=== PATIENT | female | born 1975 | race Caucasian/White ===

== ENCOUNTER 2016-11-30 16:49 | Emergency (ER) | payer OTHER ==
[~2016-11-30] VITALS: Ht 162.6 cm; Wt 81.6 kg
[~2016-11-30 16:49] MED LIST: DIAZ5TAB PO; HYDR-971 PO; IBUP400T18 PO; OXYC-323 PO
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
[2016-11-30] MEDS ORDERED: HYDROcodone/APAP 5/325MG 1 TAB TABLET PO ONE (17:15)
[2016-11-30] MEDS ORDERED: NAPR500T PO (18:22)
[2016-11-30] MEDS ORDERED: ONDA8TAB12 PO (18:22)
[2016-11-30 18:37] VITALS: BP 129/70
--- NOTE | 2016-12-01 08:29 | RAD ---
Bilateral hands, 6 views, 11/30/2016: History: Hand injury There are mild degenerative changes at scattered interphalangeal joints. There is mild deformity of the terminal tuft of the distal phalanx of the left ring finger probably due to old trauma. A definite acute fracture line is not seen. IMPRESSION: No acute bony abnormality is detected.
--- NOTE | 2016-12-01 08:37 | RAD ---
Left foot, 3 views, 11/30/2016: History: Foot injury No fracture or dislocation is identified. There is a small inferior calcaneal spur. There is moderate subcutaneous edema. IMPRESSION: No acute bony abnormality is detected.
== END 2016-11-30 18:30 | disposition home or self-care (01) ==
LOC: ER 16:49
DX: S60.222A Contusion of left hand, initial encounter (principal); S60.221A Contusion of right hand, initial encounter; S93.505A Unspecified sprain of left lesser toe(s), initial encounter; J45.909 Unspecified asthma, uncomplicated; F17.200 Nicotine dependence, unspecified, uncomplicated; F12.10 Cannabis abuse, uncomplicated; Z91.040 Latex allergy status; W20.8XXA Other cause of strike by thrown, projected or falling object, initial encounter; Y93.89 Activity, other specified; Y99.8 Other external cause status; Y92.89 Other specified places as the place of occurrence of the external cause
CPT/HCPCS: 73130; 73630; 99284

== ENCOUNTER 2017-02-13 13:44 | Inpatient (IN) | payer OTHER ==
[~2017-02-13] VITALS: Ht 162.6 cm; Wt 84.4 kg
[~2017-02-13 13:44] MED LIST changes: +NAPR500T PO; +ONDA8TAB12 PO
--- NOTE | 2017-02-13 14:34 | PHYS DOC ---
Past History Past Medical History: Asthma Past Surgical History: Cholecystectomy, , Other Smoking: Greater than 1 pack/day Alcohol Use: None Drug Use: Marijuana Adult General Chief Complaint Chief Complaint: INSECT BITE HPI HPI Patient is a 41-year-old female who presents ambulatory to the ED with the complaint of a painful lesion on the back of the right thigh. More than 10 days ago, she believes it started as some kind of a bite. She was seen in the ED at [facility] and prescribed what she believes was Bactrim. She took it twice a day until gone as directed. The lesion did not get better, it got worse. She also has numerous small itchy lesions on her arms, back, buttocks and legs. For the past couple of days, she's had fever and chills, occasional vomiting, has felt tired, just wants to sleep all day, doesn't feel well. The right posterior thigh lesion has become more painful. Patient states she had MRSA several years ago, she started with cellulitis of her right foot and then it got into her bloodstream. Review of Systems Review of Systems Constitutional: As in history of present illness Eyes: Denies change in visual acuity, redness, or eye pain [] HENT: Denies nasal congestion or sore throat [] Respiratory: Denies cough or shortness of breath [] Cardiovascular: Denies chest pain GI: "A little" vomiting : Denies dysuria or hematuria [] Musculoskeletal: Denies back pain or joint pain [] Integument: As in history of present illness Neurologic: Denies headache, focal weakness or sensory changes [] Current Medications Current Medications Current Medications Medications (Trade) Dose Ordered Sig/Adore Start Time Stop Time Status Last Admin Dose Admin Acetaminophen (Tylenol) 1,000 mg 1X ONCE 02/13/17 14:35 02/13/17 14:36 Sodium Chloride 1,000 ml @ 1,000 mls/hr 1X ONCE 02/13/17 14:30 02/13/17 15:29 UNV Allergies Allergies Allergies Coded Allergies Type Severity Reaction Last Updated Verified latex Allergy Intermediate Rash 11/30/16 Yes Physical Exam Physical Exam Constitutional: Well developed, well nourished, alert, mentating normally, afebrile but having shaking chills HENT: Normocephalic, atraumatic, bilateral external ears normal, nose normal. [ ] Eyes: conjunctiva normal, no discharge. [] Neck: Normal range of motion, no stridor. [] Cardiovascular:Heart rate regular rhythm, no murmur [] Lungs & Thorax: Bilateral breath sounds clear to auscultation [] Skin: Warm, dry. There are scattered lesions that are 2-3 mm in size, pink, raised, none or vesicular, some are excoriated, present in a scattered fashion on both arms, her back, and both legs, perhaps 5-10 per extremity. There is a area of these lesions over the right low back just above the buttock that is more coalescent. On the right posterior thigh, there is a area of swelling and redness that is about 4 inches in diameter. It does not feel indurated, questionable he feels fluctuant. No drainage. Overlying skin is dry and excoriated. Most of the posterior thigh is red in an area of apparent cellulitis around the central area of more redness and swelling. Distal neurovascular intact, no swelling of the knee or lower leg on the right. Extremities: No tenderness, no cyanosis, no clubbing, ROM intact, no edema. [] Neurologic: Alert and oriented X 3, normal motor function, normal sensory function, no focal deficits noted. [] EKG EKG [] Radiology/Procedures Radiology/Procedures Procedure: Aspiration of questionable abscess by me The area of questionable abscess on the right posterior thigh was cleaned with Betadine. A small area was anesthetized with 1% buffered lidocaine plain. An 18- gauge needle was used to aspirate the area. There is no purulent return whatsoever. A small amount of blood was obtained but nothing else. The patient tolerated the procedure well. [] Course & Med Decision Making Course & Med Decision Making Pertinent Labs and Imaging studies reviewed. (See chart for details) 41-year-old female presents with an area of apparent cellulitis on the posterior right thigh, there may be an abscess in the middle. Also systemic signs of infection including chills and general malaise. She has completed a course of antibiotics that she believes is Bactrim. Discussed with the patient that she has worsened despite outpatient antibiotics, need to check some labs and potentially admit her for IV antibiotics, she is agreeable to that plan. Patient remained stable in the ED but continued to have shaking chills. I did anesthetize and aspirate the area of questionable abscess and I did not get any pus back. I believe the area on the posterior right thigh represents cellulitis. It is not itchy but it is painful. She does not have a fever here but is having shaking chills. She has failed outpatient antibiotics, finished a course of Bactrim and states her redness is worse rather than better. I believe the patient should be admitted for IV antibiotics and IV fluids. Discussed the case with Dr. Lyons who will admit the patient. I wrote bridge orders. [] Dragon Disclaimer Dragon Disclaimer This chart was dictated in whole or in part using Voice Recognition software in a busy, high-work load, and often noisy Emergency Department environment. It may contain unintended and wholly unrecognized errors or omissions. Departure Departure: Impression: Primary Impression: Cellulitis of right leg Disposition: ADMITTED INPATIENT Admitting Physician: Stacie Lyons Condition: STABLE Referrals: CELE KHAN NP (PCP) CAMPOS MEIER MD Feb 13, 2017 14:34
[2017-02-13] MEDS ORDERED: IV NORMAL SALINE 1,000ML 1,000 ML IV ONE (14:35)
[2017-02-13] MEDS ORDERED: ACETAMINOPHEN 500 MG TABLET PO ONE (14:35)
[2017-02-13 14:46] LABS: BASO # 0.1 x10^3/uL (0.0-0.2); BASO % 1 % (0-3); EOS # 0.9 x10^3/uL (0.0-0.7); EOS % 9 % (0-3); HEMATOCRIT 30.7 % (36.0-47.0); HEMOGLOBIN 9.5 g/dL (12.0-15.5); LYMPH # 2.5 x10^3/uL (1.0-4.8); LYMPH % 27 % (24-48); MEAN CORPUSCULAR HEMOGLOBIN 19 pg (25-35); MEAN CORPUSCULAR HGB CONC 31 g/dL (31-37); MEAN CORPUSCULAR VOLUME 60 fL (79-100); MONO # 0.7 x10^3/uL (0.0-1.1); MONO % 7 % (0-9); NEUT # 5.1 x10^3uL (1.8-7.7); NEUT % 56 % (31-73); PLATELET COUNT 574 x10^3/uL (140-400); RED BLOOD COUNT 5.09 x10^6/uL (3.50-5.40); RED CELL DISTRIBUTION WIDTH 21.2 % (11.5-14.5); WHITE BLOOD COUNT 9.2 x10^3/uL (4.0-11.0)
[2017-02-13 15:02] LABS: ALBUMIN 3.9 g/dL (3.4-5.0); ALBUMIN/GLOBULIN RATIO 0.9 (1.0-1.7); CALCIUM 9.1 mg/dL (8.5-10.1); CREATININE 0.9 mg/dL (0.6-1.0); GFR 68.3; POTASSIUM 3.7 mmol/L (3.5-5.1); TOTAL BILIRUBIN 0.3 mg/dL (0.2-1.0); TOTAL PROTEIN 8.1 g/dL (6.4-8.2)
[2017-02-13] MEDS ORDERED: LIDOCAINE WITH 8.4% SOD BICARB 3 ML DISP.SYRIN. IJ ONE (15:45)
[2017-02-13] MEDS ORDERED: IV NORMAL SALINE 500ML 0 ML ONE (16:30)
[2017-02-13] MEDS ORDERED: VANCOMYCIN 2 GM in IV NORMAL SALINE 500ML 500 ML IV ONE (16:30)
[2017-02-13] MEDS ORDERED: VANCOMYCIN 1 GM VIAL. ONE (16:30)
[2017-02-13] MEDS: IV NORMAL SALINE 1,000ML 1,000 ML IV SCH (16:35)
[2017-02-13] MEDS: fentaNYL PF 100 MCG/2 ML VIAL IV PRN ×3 (16:46→23:47)
[2017-02-13] MEDS: VANCOMYCIN PER PHARMACY MC PRN ×2 (16:47→17:14)
[2017-02-13 17:26] VITALS: BP 116/73
[2017-02-13 18:59] LABS: BILIRUBIN,URINE NEG (NEG); CLARITY,URINE CLEAR; COLOR,URINE STRAW; GLUCOSE,URINE NEG (NEG)
[2017-02-13 19:01] LABS: BACTERIA,URINE 0 /HPF (0-FEW); NITRITE,URINE NEG (NEG); RBC,URINE 0 /HPF (0-2); SQUAMOUS EPITHELIAL CELL,UR MOD /LPF; UROBILINOGEN,URINE 0.2 mg/dL (0.2 mg/dL); WBC,URINE 0 /HPF (0-4); YEAST,URINE PRESENT /HPF
[2017-02-13] MEDS: hydrOXYzine PAMOATE 25 MG CAPSULE PO PRN (20:04)
[2017-02-13 20:30] VITALS: BP 111/56
[2017-02-13] MEDS ORDERED: NICOTINE POLACRILEX GUM 2 MG GUM. BC PRN (21:00)
[2017-02-13 21:40] LABS: ANISOCYTOSIS MOD; HYPOCHROMIA MOD; MICROCYTOSIS MOD; OVALOCYTES FEW; PLT ESTIMATE INCREASED (ADEQUATE); POLYCHROMASIA PRESENT; TARGET CELLS FEW; TEAR DROP CELLS FEW
[2017-02-13 23:15] VITALS: BP 102/57
[2017-02-13] MEDS: NICOTINE 21MG PATCH. TD SCH (23:25)
[2017-02-14] MEDS: IV NORMAL SALINE 1,000ML 1,000 ML IV SCH ×2 (02:35→11:34)
--- NOTE | 2017-02-14 02:38 | ACF ---
Admission Criteria Forms CELLULITIS Clinical Indications for Admission to Inpatient Care (Place 'X' for any and all applicable criteria): Admission is indicated for ANY ONE of the following(1)(2)(3)(4)(5): [ ]I. Limb-threatening infection [ ]II. High-risk comorbid condition as indicated by ANY ONE of the following: [ ]a) Uncontrolled diabetes (eg, HbA1c greater than 10% (0.1)) [ ]b) Cirrhosis [ ]c) Neutropenia [ ]d) Asplenia [ ]e) Immunosuppression [ ]f) Symptomatic heart failure [ ]III. Failure of outpatient therapy as indicated by ALL of the following: [ ]a) Progression or no improvement after adequate trial (minimum of 48 hours, with longer period for stable lower extremity infection) [ ]b) Adequate antibiotic regimen as indicated by use of ANY ONE of the following: [ ]i) First-generation cephalosporin (e.g., cephalexin) [ ]ii) Antistaphylococcal penicillin (e.g., dicloxacillin) [ ]iii) Penicillin-allergic patient regimen (clindamycin, extended-spectrum fluoroquinolone, or doxycycline) [ ]iv) Resistant organism (eg, methicillin-resistant Staphylococcus aureus) regimen (6) [ ]c) Outpatient intravenous therapy regimen is not appropriate due to ANY ONE of the following. (7)(8)(9)(10): [ ]i) It was tried and was not successful (eg, progression of infection). [ ]ii) It is not available or cannot be arranged in a clinically appropriate time frame (e.g., the next day). [ ]iii) Clinical presentation (eg, acuity of infection, rapidity of progression, confirmed or suspected bacteremia) is judged to require ALL of the following: [ ]1) Immediate initiation of intravenous therapy ( eg, cannot wait for next day) [ ]2) Intensity of patient monitoring and observation (eg, vital sign measurement, checks for infection progression) that cannot be provided at other than inpatient level of care [ ]IV. Mental status changes [ ]V. Bacteremia [ ]. Hemodynamic instability [ ]VII. Suspected necrotizing soft tissue infection (e.g., gas in tissue)(11)( 12) [ ]VIII. Orbital infection (13)(14) [ ]IX. Associated surgical procedure (e.g., abscess drainage, debridement) not amenable to outpatient, emergency department, or observation care [ ]X. Cutaneous gangrene [ ]XI. High fever (temperature greater than 39.5 degrees C (103.1 degrees F) (oral)) not responsive to outpatient, emergency department, or observation care therapy [X ]XIII. Inpatient admission required rather than observation care (Also use Cellulitis: Observation Care as appropriate) because of ANY ONE of the following : [ ]a) Periorbital or perineal infection that is severe or worsening [ ]b) Severe pain requiring acute inpatient management [ ]c) IV fluid to replace significant ongoing (e.g., for over 24 hours) losses (greater than 3L/m2 per day) [ ]d) Compartment syndrome monitoring (17) [ ]e) Strict or protective (eg, laminar flow) isolation [ ]f) Urgent debridement or skin grafting [ ]g) Bone or joint debridement [ ]h) Immediate inpatient surgery [X ]i) Other condition, treatment or monitoring requiring inpatient admission Extended stay beyond goal length of stay may be needed for (1)(18): [ ]a) Necrotizing soft tissue infection or fasciitis [ ]b) Gram-negative infection [ ]c) Methicillin-resistant Staphylococcal aureus (MRSA) infection [ ]d) Peripheral venous insufficiency with cellulitis [ ]e) Extensive edema [ ]f) Sepsis or continued Hemodynamic instability [ ]g) Continued high fever or mental status change [ ]h) Bacteremia [ ]i) Active serious comorbid conditions ( eg, heart failure, renal insufficiency) The original [employer] content created by [employer] has been revised. The portions of the content which have been revised are identified through the use of italic text or in bold, and [facility] has neither reviewed nor approved the modified material. All other unmodified content is copyright [facility] Please see references footnoted in the original [facility] edition 2016 Admission Criteria Met?: Yes LINNEA OCONNELL Feb 14, 2017 02:38
[2017-02-14] MEDS: hydrOXYzine PAMOATE 25 MG CAPSULE PO PRN (05:30)
[2017-02-14] MEDS: VANCOMYCIN 1.25 GM in IV NORMAL SALINE 250ML 250 ML IV SCH ×2 (05:31→17:17)
[2017-02-14 05:47] VITALS: BP 107/57
[2017-02-14] MEDS: NICOTINE 21MG PATCH. TD SCH (08:15)
[2017-02-14] MEDS: KETOROLAC 30 MG/ML VIAL. IV PRN ×2 (08:27→19:23)
[2017-02-14] MEDS: HYDROCORTISONE 2.5% TOPICAL OINTMENT 30GM TUBE. TP SCH ×2 (10:24→16:00)
[2017-02-14] MEDS: CETIRIZINE HCL 10 MG TABLET PO SCH (10:24)
[2017-02-14] MEDS: MEROPENEM 1 GM in IV NORMAL SALINE 100ML 100 ML IV SCH ×3 (10:24→21:47)
[2017-02-14] MEDS: fentaNYL PF 100 MCG/2 ML VIAL IV PRN ×3 (10:35→17:48)
[2017-02-14 11:18] VITALS: BP 117/66
[2017-02-14] MEDS ORDERED: methylPREDNISolone SOD SUCC PF 40 MG/ML VIAL. IV ONE (11:55)
[2017-02-14] MEDS: PRENATAL MULTIVITAMIN TABLET. PO SCH (12:20)
--- NOTE | 2017-02-14 12:36 | HP ---
ADMIT DATE: 02/13/2017 REASON FOR ADMISSION: Skin condition. HISTORY OF PRESENT ILLNESS: This is a 41-year-old female who presented to the Emergency Room yesterday complaining of continued painful lesion on the back of the right thigh. She failed outpatient treatment with Bactrim. This has been ongoing for at least 10 days. She feels like she got bit with something, but is not sure what bit her. She has some other areas also that popped up and has complained of symptomatic fever and chills and occasional vomiting. She also feels quite sleepy according to the Emergency Room record. PAST MEDICAL HISTORY: 1. She states she was told she had hepatitis C and then did not have hepatitis C and she has not had any treatment for that. 2. She had MRSA on her foot few years ago. 3. She has a history of iron deficiency, but cannot take iron. MEDICATIONS: None. ALLERGIES: Latex. FAMILY HISTORY: Positive for diabetes, hypertension. Mother of ovarian cancer from talc she states. HABITS: Smokes 2 packs per day. Denies IV drug use or current drug use. SOCIAL HISTORY: He has 4 children, currently is not working. REVIEW OF SYSTEMS: Positive for chills, fever, some weight gain, itching and scratching of the lesions. Positive subjective complaint of fever and chills. The patient does complain of foul smelling discharge and some unprotected sex, but several months ago. OBJECTIVE: VITAL SIGNS: T-max is 98.4, blood pressure , respirations 20, pulse 73, pulse ox 100% on room air. Height 64 inches, weight 186 pounds. GENERAL: A 41-year-old who is just waking up from sleeping. She did get some fentanyl. HEENT: Hearing is normal. Her eyes are clear. Her throat was clear. She has a tongue piercing. NECK: Supple. LUNGS: Clear. CARDIOVASCULAR: Regular rhythm and rate. ABDOMEN: Soft, mildly tender diffusely. Bowel sounds are positive. EXTREMITIES: Without edema. SKIN: Posterior right thigh has a very large round area of erythema with scaling patches that is tender, cannot appreciate an abscess. She has another smaller patch above the right knee much smaller. She has also other areas on the legs, arms of areas of scratching without the bright red rash. LABORATORY DATA: White count is normal, hemoglobin is 9.5, hematocrit 30.7. Chemistry profile is negative. Lactic acid negative. Urinalysis contaminated specimen, but negative leukocyte esterase, negative nitrites. ASSESSMENT: 1. Cellulitis of the posterior thigh with dermatitis. 2. Other itchy lesions on the skin. 3. History of MRSA. 4. Tobacco use disorder. Offered her nicotine patch. Encouraged to quit. 5. Severe microcytic anemia. We will check iron studies and start her on a vitamin. PLAN: Broad spectrum antibiotics, hydrocortisone cream, Zyrtec for itching. Reevaluate in the morning. STEPHANIE RAMON DO DR: WILDER/aria JOB#: [id number] / [id number]
[2017-02-14] MEDS ORDERED: FLUCONAZOLE 100 MG TABLET. PO ONE (14:10)
[2017-02-14 14:56] VITALS: BP 128/78
--- NOTE | 2017-02-14 16:20 | HP ---
ADMIT DATE: 02/13/2017 ADDENDUM HISTORY OF PRESENT ILLNESS: The patient complained of vaginal discharge and a wet mount was done. She was found to have both vaginal yeast and bacterial vaginosis. She will be treated accordingly. 1. Bacterial vaginosis. 2. Vaginal yeast, in addition to her other problems. STEPHANIE RAMON DO DR: WILDER/aria JOB#: [id number] / [id number]
[2017-02-14 19:28] VITALS: BP 113/67
[2017-02-14] MEDS ORDERED: IRON SUCROSE COMPLEX 200 MG in IV NORMAL SALINE 100ML 100 ML IV ONE (21:00)
[2017-02-14 23:30] VITALS: BP 120/69
[2017-02-15] MEDS: fentaNYL PF 100 MCG/2 ML VIAL IV PRN (02:20)
[2017-02-15 04:40] LABS: BASO # 0.1 x10^3/uL (0.0-0.2); BASO % 1 % (0-3); EOS % 0 % (0-3); HEMATOCRIT 26.9 % (36.0-47.0); HEMOGLOBIN 8.2 g/dL (12.0-15.5); LYMPH # 1.2 x10^3/uL (1.0-4.8); LYMPH % 11 % (24-48); MEAN CORPUSCULAR HEMOGLOBIN 19 pg (25-35); MEAN CORPUSCULAR HGB CONC 31 g/dL (31-37); MEAN CORPUSCULAR VOLUME 61 fL (79-100); MONO # 0.7 x10^3/uL (0.0-1.1); MONO % 7 % (0-9); NEUT # 8.4 x10^3uL (1.8-7.7); NEUT % 81 % (31-73); PLATELET COUNT 502 x10^3/uL (140-400); RED BLOOD COUNT 4.45 x10^6/uL (3.50-5.40); RED CELL DISTRIBUTION WIDTH 21.4 % (11.5-14.5); WHITE BLOOD COUNT 10.4 x10^3/uL (4.0-11.0)
[2017-02-15 05:03] LABS: ALBUMIN/GLOBULIN RATIO 0.8 (1.0-1.7); CALCIUM 8.4 mg/dL (8.5-10.1); CREATININE 0.8 mg/dL (0.6-1.0); GFR 78.3; MAGNESIUM 1.8 mg/dL (1.8-2.4); POTASSIUM 4.2 mmol/L (3.5-5.1); TOTAL BILIRUBIN 0.2 mg/dL (0.2-1.0); TOTAL PROTEIN 6.6 g/dL (6.4-8.2)
[2017-02-15] MEDS: VANCOMYCIN 1.25 GM in IV NORMAL SALINE 250ML 250 ML IV SCH (05:09)
[2017-02-15 05:21] VITALS: BP 100/47
[2017-02-15] MEDS: KETOROLAC 30 MG/ML VIAL. IV PRN (05:23)
[2017-02-15] MEDS: MEROPENEM 1 GM in IV NORMAL SALINE 100ML 100 ML IV SCH ×2 (06:31→14:11)
[2017-02-15] MEDS ORDERED: PNEUMOC CONJ VACC 23-VALENT 0.5 ML VIAL. VAX IM ONE (08:00)
[2017-02-15] MEDS: VANCOMYCIN PER PHARMACY MC PRN (08:27)
[2017-02-15] MEDS: HYDROCORTISONE 2.5% TOPICAL OINTMENT 30GM TUBE. TP SCH ×2 (09:00→16:00)
[2017-02-15] MEDS: PRENATAL MULTIVITAMIN TABLET. PO SCH (09:19)
[2017-02-15] MEDS: NICOTINE 21MG PATCH. TD SCH (09:20)
[2017-02-15] MEDS: CETIRIZINE HCL 10 MG TABLET PO SCH (09:20)
[2017-02-15 11:28] VITALS: BP 115/73
[2017-02-15 15:00] VITALS: BP 117/88
[2017-02-15] MEDS ORDERED: fentaNYL PF 100 MCG/2 ML VIAL IV PRN (15:15)
[2017-02-15] MEDS ORDERED: VANCOMYCIN 1.5 GM in IV NORMAL SALINE 500ML 500 ML IV SCH (17:00)
--- NOTE | 2017-02-16 09:43 | DS ---
DATE OF DISCHARGE: 02/15/2017 HISTORY OF PRESENT ILLNESS: The patient is a 41-year-old female patient who was admitted with a painful lesion in the back of the right thigh. She went to work with her cousin and developed skin lesion in the back of her right thigh, so [facility], she was treated there. She was diagnosed with cellulitis and treated with Bactrim twice a day for 10 days. She did complete the outpatient antibiotic treatment without much improvement and she came to the Emergency Room at [facility] with continued erythema and pain in that area and also multiple other lesions which was thought to be herpetic keratosis and symptomatic fever, chills, occasional vomiting and she was started on IV vancomycin and then meropenem. She also complained of vaginal discharge and was diagnosed with bacterial vaginosis and vaginal yeast, in addition to her other problems. As she is not really making any improvement, continued to have severe pain and redness she states it is in the back of the right thigh. There are multiple skin lesions ____ cellulitis and the skin rash at the back of the thigh ____ erythema migrans. Her job is an outdoor job and she might have a tick bites and possible Lyme disease and because of the ____ to treatment, I decided to transfer her to [facility] to consult the infectious disease specialist, the jive developer, composition weatherboard applier and given that she has also some lesions in vagina and we will discharge her from the emergency accordingly. PHYSICAL EXAMINATION: GENERAL: When I saw her this afternoon, she was ____ and in no apparent respiratory distress. She was slightly pale, no jaundice, cyanosis, or thyromegaly. No jugular venous distention. No limb edema. VITAL SIGNS: Her heart rate is 64, blood pressure was 115/73, temperature was 98.2, respiratory rate was 20, and oxygen saturation was 90%. HEAD, EYES, EARS, NOSE AND THROAT: Showed normocephalic, atraumatic. NECK: Supple. HEART: Showed normal first and second heart sounds. No gallop, rub or murmur. CHEST: Clear to auscultation. No crepitation or rhonchi. ABDOMEN: Distended, soft, nontender. No guarding or rigidity. No organomegaly. Hernial orifices intact. Bowel sounds normal. NEUROLOGICAL: She was awake, alert, responding appropriately. Cranial nerves intact. She moves extremities without difficulty. She ambulates without assistance or assistive devices. SKIN: Examination of the skin showed that she had large erythematous area on the distal aspect of the right thigh. The central part showed some desquamation of the skin and the patient ____ skin lesion all over in her upper and lower extremities, she had another large macular area on the right thigh making the diagnosis of cellulitis less likely. She also complained of some lesions in her vagina. LABORATORY DATA: This morning showed that white cell count was 10,400, hemoglobin 8.2, hematocrit 26.9, MCV 61, and platelet count of 502,000. Her chemistry showed a serum sodium of 140, potassium 4.2, chloride 106, bicarbonate 27, anion gap of 7, BUN 8, creatinine 0.8. Estimated GFR was 78 mL per minute, glucose 153, calcium is 8.4, magnesium 1.8. Her total bilirubin AST, ALT, alkaline phosphatase were normal. Total protein was 6.6, albumin 3. Her iron is low with an iron binding capacity extremely high and iron saturation is only 4, and serum ferritin was 5. Her urinalysis showed the urine was yellow, straw colored, clear with a pH of 5, specific gravity 1.005. The urine was negative for protein, glucose, ketones, trace of blood, negative for nitrite and negative for leukocyte esterase with 0 rbc, 0 wbc's and 0 bacteria. Urine toxicology showed vancomycin trough was 9. She has also ____ suggestive of bacterial vaginosis and also multiple yeast. ____ negative for Trichomonas and clue cells. PLAN: My plan is to transfer her to [facility] with diagnoses of some form of STD, cellulitis versus chronic erythema migrans. 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 We will also test for other ____ she has history of hepatitis C, she has history of iron deficiency anemia, but she is not taking any iron. IRA SKAGGS MD DR: AARON/aria JOB#: [id number] / [id number]
== END 2017-02-15 16:45 | disposition short-term general hospital (02) | DRG 758 ==
LOC: ER 13:44 → 1 SOUTH 16:00
PROVIDERS: ADMIT Family Medicine; ATTEND Family Medicine
PROC: 0Y9C3ZZ Drainage of Right Upper Leg, Percutaneous Approach (ICD-10-PCS; principal; 2017-02-13)
DX: B37.3 Candidiasis of vulva and vagina (principal); L03.115 Cellulitis of right lower limb; B00.52 Herpesviral keratitis; N76.0 Acute vaginitis; L30.9 Dermatitis, unspecified; J45.909 Unspecified asthma, uncomplicated; F12.90 Cannabis use, unspecified, uncomplicated; F17.290 Nicotine dependence, other tobacco product, uncomplicated; D50.9 Iron deficiency anemia, unspecified; Z90.49 Acquired absence of other specified parts of digestive tract; Z80.41 Family history of malignant neoplasm of ovary; Z82.49 Family history of ischemic heart disease and other diseases of the circulatory system; Z83.3 Family history of diabetes mellitus; Z86.14 Personal history of Methicillin resistant Staphylococcus aureus infection; Z91.040 Latex allergy status; Z71.6 Tobacco abuse counseling
CPT/HCPCS: 10160; 36415; 80053; 80202; 81001; 82728; 83540; 83550; 83605; 83735; 85008; 85027; 87491; 87591; 87641; 90732; 96361; 96365; 99406; J1756; J1885; J2185; J2920; J3010; J3370; J7040; J7050; Q0111; Q0177; 99285-25; J7030

== ENCOUNTER 2019-08-18 17:02 | Emergency (ER) | payer SELFPAY ==
[~2019-08-18] VITALS: Ht 167.6 cm; Wt 70.0 kg
[~2019-08-18 17:02] MED LIST changes: +HYDR-3165 PO; -HYDR-971 PO; +NAPR-683 PO; -NAPR500T PO; -OXYC-323 PO; +OXYC1TAB15 PO
[2019-08-18] MEDS ORDERED: PRED20TA PO (17:20)
--- NOTE | 2019-08-18 17:21 | PHYS DOC ---
Past History Past Medical History: No Pertinent History, Anemia, Asthma Past Surgical History: Cholecystectomy, , Other Smoking: Greater than 1 pack/day Alcohol Use: None Drug Use: Marijuana Adult General Chief Complaint Chief Complaint: SKIN PROBLEM HPI HPI A 43-year-old female presents with a three-day history of worsening left elbow pain. Patient denies trauma. Patient reports tenderness to palpation, swelling, and erythema. Reports worse with palpation. She she reports full range of motion, no sensory deficits, no numbness or tingling, and no cold hands. She reports using her hands a lot cleaning. She also denies fever. Reports history of rheumatoid arthritis and osteoarthritis. Review of Systems Review of Systems Constitutional: Denies fever or chills Eyes: Denies redness or eye pain HENT: Denies nasal congestion or sore throat Respiratory: Denies cough or shortness of breath Cardiovascular: Denies chest pain or palpitations GI: Denies abdominal pain, nausea, or vomiting : Denies dysuria or hematuria Musculoskeletal: Denies back pain but reports left elbow pain. Integument: Denies rash or skin lesions, reports left elbow swelling and erythema Neurologic: Denies headache, focal weakness or sensory changes Complete systems were reviewed and found to be within normal limits, except as documented in this note. Allergies Allergies Allergies Coded Allergies Type Severity Reaction Last Updated Verified latex Allergy Intermediate Rash 11/30/16 Yes I S O L A T I O N *CONTACT* Allergy Unknown 02/15/17 Yes Physical Exam Physical Exam Constitutional: Well developed, well nourished, no acute distress, non-toxic appearance HENT: Normocephalic, atraumatic, oropharynx moist Eyes: Conjunctiva normal, no discharge Neck: Normal range of motion, supple Cardiovascular: Heart rate normal, regular rhythm Lungs & Thorax: Bilateral breath sounds clear to auscultation, no wheezing Skin: Warm, dry, no erythema, no rash, there is focal swelling and erythema around the left olecranon. Extremities: Left elbow as full range of motion with pain. Radial pulses 2-4. Erythema, swelling, tenderness to palpation of the left elbow. Neurologic: Alert and oriented X 3, no focal deficits noted Psychologic: Affect normal, judgement normal EKG EKG [] Radiology/Procedures Radiology/Procedures [] Course & Med Decision Making Course & Med Decision Making Patient presents with left elbow pain. Exam shows no streaking or bony point tenderness around the olecranon process or radial head. Physical exam is most consistent with olecranon bursitis. Patient was instructed to take ibuprofen, ice on and off 20 minutes each, use KT tape or Dawson wrap and prescribed a steroid. She was instructed to return if swelling spreads distally or if streaking occurs. KT tape placed to left elbow. Patient stable for discharge with outpatient follow-up with PCP/Orthopedics. Orthopedic referral provided. Discussed findings and plan with patient and family, who acknowledge understanding and agreement. Dragon Disclaimer Dragon Disclaimer This electronic medical record was generated, in whole or in part, using a voice recognition dictation system. Splinting Splinting : Location: Left elbow Pre-Made Type: KT tape Pre-Proc Neuro Vasc Exam: normal Post-Proc Neuro Vasc Exam: normal, unchanged from pre-exam Departure Departure: Impression: Primary Impression: Olecranon bursitis Disposition: 01 HOME, SELF-CARE Condition: STABLE Referrals: PCP,KASSIE (PCP) JEANETH CARDOSO MD Patient Instructions: Olecranon Bursitis, [id number] Additional Instructions: Use over the counter Tylenol and/or Ibuprofen for pain or discomfort. Scripts Prednisone (PREDNISONE) 20 Mg Tablet 2 TAB PO DAILY for Bursitis, #8 TAB Start this prescription tomorrow, 08/19/2019 Prov: EDA STROUD DO 08/18/19 Problem Qualifiers Primary Impression: Olecranon bursitis Laterality: left Qualified Codes: M70.22 - Olecranon bursitis, left elbow EDA STROUD DO Aug 18, 2019 17:21
[2019-08-18 17:26] VITALS: BP 145/79
[2019-08-18] MEDS ORDERED: DEXAMETHASONE 4 MG TABLET PO ONE (17:30)
== END 2019-08-18 17:49 | disposition home or self-care (01) ==
LOC: ER 17:02
DX: M70.22 Olecranon bursitis, left elbow (principal); J45.909 Unspecified asthma, uncomplicated; F17.200 Nicotine dependence, unspecified, uncomplicated; Z86.2 Personal history of diseases of the blood and blood-forming organs and certain disorders involving the immune mechanism; Z91.040 Latex allergy status; Z91.041 Radiographic dye allergy status
CPT/HCPCS: 99283; J8540